=== PATIENT | male | born 1995 | race Caucasian/White ===

== ENCOUNTER → 2023-11-13 11:45 | Outpatient (BNVA) | payer OTHER, SELFPAY | PROVIDERS: Visit Provider Nurse Practitioner Family | DX: J02.9 Acute pharyngitis, unspecified (principal); R52 Pain, unspecified; R42 Dizziness and giddiness | CPT/HCPCS: 80053; 80061; 84443; 85025; 87071; 87400; 87880 ==

== ENCOUNTER 2024-10-19 06:00 | Outpatient (CLI) | payer BC, SELFPAY | END 2024-10-19 06:01 | disposition home or self-care (01) | LOC: LAB 10-20 13:57 | PROVIDERS: Visit Provider Nurse Practitioner Family | DX: I10 Essential (primary) hypertension (principal) | CPT/HCPCS: 80053; 80061; 84443; 85025 ==

== ENCOUNTER → 2024-11-21 09:57 | Outpatient (BNVA) | payer BC, SELFPAY | PROVIDERS: PCP Family Medicine; Visit Provider Nurse Practitioner Family | DX: I10 Essential (primary) hypertension (principal) | CPT/HCPCS: 80048 ==

== ENCOUNTER 2024-12-05 09:47 | Outpatient (CLI) | payer BC, SELFPAY | END 2024-12-05 09:48 | disposition home or self-care (01) | LOC: SLEEP 09:49 | PROVIDERS: PCP Family Medicine; Referring Provider Nurse Practitioner Family; Visit Provider Internal Medicine Pulmonary Disease | DX: G47.33 Obstructive sleep apnea (adult) (pediatric) (principal) | CPT/HCPCS: 80053; 80061; 84443; 85025; G0399 ==